=== PATIENT | female | born 1940 | race Caucasian/White ===

== ENCOUNTER → 2019-04-04 | Outpatient (CLI) | payer MEDICARE | END | disposition home or self-care (01) | LOC: RAH 10:30 | PROVIDERS: ATTEND Orthopaedic Surgery | DX: M51.17 Intervertebral disc disorders with radiculopathy, lumbosacral region (principal); M48.061 Spinal stenosis, lumbar region without neurogenic claudication; M70.61 Trochanteric bursitis, right hip; M16.11 Unilateral primary osteoarthritis, right hip | CPT/HCPCS: 72148 ==

== ENCOUNTER 2020-12-17 06:05 | Day surgery (SDC) | payer MEDICARE, OTHER ==
[2020-12-13 14:04] VITALS: BP 178/81
[2020-12-17] VITALS (10 sets, daily range): BP systolic 115–145; BP diastolic 46–80
[~2020-12-17] VITALS: Ht 167.6 cm; Wt 63.0 kg
[2020-12-17] MEDS: CEFAZOLIN SODIUM 1 GM VIAL IVP SCH ×2 (06:00→07:53)
[~2020-12-17 06:05] MED LIST: ATOR20TA65 PO; COMPOUND IV REFRIGERATED 1 EACH IVSOLN MISC PRN; GABA600T10 PO; LOSA100T58 PO; SERT-438 PO
[2020-12-17] MEDS ORDERED: SODIUM BICARB [NEONATAL] 4.2% 10ML SYG ONE (07:07)
[2020-12-17] MEDS ORDERED: LIDOCAINE HCL 1% 20 ML VIAL ONE ×3 (07:07→07:11)
[2020-12-17] MEDS ORDERED: LACTATED RINGERS 1000ML 1,000 ML IV ONE (07:07)
[2020-12-17] MEDS ORDERED: PROPOFOL 10 MG/ML 20ML VIAL IV ONE ×2 (07:27→08:03)
[2020-12-17] MEDS ORDERED: MIDAZOLAM HCL 1 MG/ML 2ML VIAL ONE (07:27)
[2020-12-17] MEDS ORDERED: ONDANSETRON 4MG INJ ONE (07:32)
[2020-12-17] MEDS ORDERED: IOPAMIDOL 10 ML VIAL ONE (07:45)
== END 2020-12-17 09:50 | disposition home or self-care (01) ==
LOC: DAH 06:05
PROVIDERS: ATTEND Neurological Surgery
DX: M53.3 Sacrococcygeal disorders, not elsewhere classified (principal); Z20.828 Contact with and (suspected) exposure to other viral communicable diseases; I10 Essential (primary) hypertension; M54.5 Low back pain; Z98.890 Other specified postprocedural states
CPT/HCPCS: 72202; 93005; A4215 ×2; A4221; A4222; A4223; A4663; C9803; G0260; J0690; J1030 ×2; J2250; J2405; J2704 ×2; J3490; J7120; Q9966; U0003

== ENCOUNTER → 2023-03-18 | Outpatient (CLI) | payer OTHER ==
[~2023-03-18] MED LIST changes: +ATEN25TA PO; +BIOTIN PO; +CHOL500050 PO; -COMPOUND IV REFRIGERATED 1 EACH IVSOLN MISC PRN; +COQ10 PO; +MULT1CAP32 PO; +SIMV10TA97 PO; +TRAM50TA4 PO; +VALS320T16 PO
== END | disposition home or self-care (01) ==
LOC: RAH 09:06
PROVIDERS: ATTEND Family Medicine
DX: M47.817 Spondylosis without myelopathy or radiculopathy, lumbosacral region (principal); M48.07 Spinal stenosis, lumbosacral region; M41.87 Other forms of scoliosis, lumbosacral region
CPT/HCPCS: 72148

== ENCOUNTER → 2023-03-29 | Outpatient (CLI) | payer OTHER ==
[~2023-03-29] MED LIST changes: -LOSA100T58 PO; +LOSA100T59 PO
== END | disposition home or self-care (01) ==
LOC: RAH 10:44
PROVIDERS: ATTEND Neurological Surgery
DX: M47.816 Spondylosis without myelopathy or radiculopathy, lumbar region (principal); M53.3 Sacrococcygeal disorders, not elsewhere classified
CPT/HCPCS: 72170; 72220

== ENCOUNTER → 2023-06-02 | Outpatient (CLI) | payer OTHER | END | disposition home or self-care (01) | LOC: RAH 07:39 | PROVIDERS: ATTEND Family Medicine | DX: I65.23 Occlusion and stenosis of bilateral carotid arteries (principal) | CPT/HCPCS: 70544; 70547 ==

== ENCOUNTER → 2024-08-10 | Outpatient (CLI) | payer OTHER ==
[~2024-08-10] MED LIST changes: +GABA-1405 PO; -GABA600T10 PO
== END | disposition home or self-care (01) ==
LOC: RAH 12:35
PROVIDERS: ATTEND Family Medicine
DX: M16.11 Unilateral primary osteoarthritis, right hip (principal); M25.851 Other specified joint disorders, right hip; M54.31 Sciatica, right side; M25.561 Pain in right knee; Z96.642 Presence of left artificial hip joint
CPT/HCPCS: 73502; 73562

== ENCOUNTER → 2024-12-21 | Outpatient (CLI) | payer OTHER ==
--- NOTE | 2024-12-21 13:13 | HMCIMG ---
MR SPINAL CANAL, LUMBAR WO CON REASON: SPONDYLOSIS LUMBAR REGION COMPARISON: None TECHNIQUE: Routine lumbar imaging protocol was performed. FINDINGS: There are surgical changes with bilateral pedicle screws at L4 and L5. There is been posterior decompression. Vertebral body alignment is normal. There is severe narrowing of the interspaces at L4 and L5 with moderate narrowing at L3-4. Axial images show widely patent spinal canal at L4 and L5. There is ligamentum flavum and facet hypertrophic change at L3-4. These findings cause severe spinal stenosis, AP diameter in the midline 4 to 5 mm. Remaining interspaces are widely patent. Neural foramina appear preserved. There are no focal osseous lesions. IMPRESSION: 1. Postoperative and degenerative changes as described. 2. Severe degenerative narrowing at the L3-4 level, with marked spinal stenosis, AP diameter between 4 and 5 mm.
== END | disposition home or self-care (01) ==
LOC: RAH 12:14
PROVIDERS: ATTEND Family Medicine
DX: M48.061 Spinal stenosis, lumbar region without neurogenic claudication (principal); M47.816 Spondylosis without myelopathy or radiculopathy, lumbar region; M47.896 Other spondylosis, lumbar region
CPT/HCPCS: 72148